=== PATIENT | female | born 1945 | race Caucasian/White ===

== ENCOUNTER 2019-11-10 11:09 | Observation (INO) | payer MEDICARE ==
[~2019-11-10] VITALS: Ht 172.7 cm; Wt 81.6 kg
[2019-11-10] MEDS ORDERED: ASPIRIN 81 MG CHEW TAB PO ONE ×2 (11:30→12:15)
--- NOTE | 2019-11-10 11:38 | Emergency Department Note ---
History of Present Illnes History of Present Illness Chief Complaint: Hypertension History of Present Illness This is a 74 year old female . c/o cp elevated bp on set 230 am PATIENT IN FROM HOME WITH COMPLAINT SOF FEELING CHEST PRESSURE AND PALPITATIONS SINCE 0230. PATIENT APPEARS IN NO DISTRESS, RESP EVEN AND NONLABORED Historian: Patient Arrival Mode: Car Onset (how long ago): day(s) (1) Radiation: Reports non-radiation Severity: mild Onset quality: sudden Duration (how long): day(s) (1) Timing of current episode: constant Progression: unchanged Context: Denies recent illness, Denies recent surgery, Denies recent immobilization, Denies recent travel, Denies trauma/injury, Denies new medications, Denies hx of DVT/PE, Denies non-compliance w/ medications, Denies other Relieving factors: none Exacerbating factors: none Associated symptoms: Denies denies other symptoms, Denies confusion, Denies chest pain, Denies cough, Denies diaphoresis, Denies fever/chills, Denies headaches, Denies loss of appetite, Denies malaise, Denies nausea/vomiting, Denies rash, Denies seizure, Denies shortness of breath, Denies syncope, Denies weakness, Denies other Treatments prior to arrival: none Past Medical/Family History Physician Review I have reviewed the patient's past medical and family history. Any updates have been documented here. Past Medical History Recent Fever: No Clinical Suspicion of Infectio: No New/Unexplained Change in Ment: No Past Medical History: Hypertension, Diabetes, CO, Hyperlipedemia Past Surgical History: Appendectomy, CABG, Other Surgery: EYE SURGERY Social History Smoking Cessation: Never Smoker Alcohol Use: None Any Illegal Drug Use: No TB Exposure/Symptoms: No Family History Family history of heart diseas: No Other Any Pre-Existing Lines (PICC,: No Review of Systems Review of Systems Constitutional: Reports no symptoms EENTM: Reports no symptoms Cardiovascular: Reports chest pain Respiratory: Reports no symptoms Gastrointestinal: Reports no symptoms Genitourinary: Reports no symptoms Musculoskeletal: Reports no symptoms Integumentary: Reports no symptoms Neurological: Reports no symptoms Psychological: Reports no symptoms Endocrine: Reports no symptoms Hematological/Lymphatic: Reports no symptoms Physical Exam Related Data Allergies: Coded Allergies: Sulfa (Sulfonamide Antibiotics) (Verified Allergy, Severe, RASHES, 11/10/19) Triage Vital Signs Vital Signs Date Time Temp Pulse Resp B/P (MAP) Pulse Ox O2 Delivery O2 Flow Rate FiO2 11/10/19 11:25 99.5 76 18 189/101 97 Room Air Vital signs reviewed: Yes Physical Exam CONSTITUTIONAL Constitutional: Present well-developed, Present well-nourished HENT HENT: Present normocephalic, Present atraumatic, Present oropharynx clear/moist, Present nose normal HENT L/R: Present left ext ear normal, Present right ext ear normal EYES Eyes: Reports PERRL, Reports conjunctivae normal NECK Neck: Present ROM normal PULMONARY Pulmonary: Present effort normal, Present breath sounds normal CARDIOVASCULAR Cardiovascular: Present regular rhythm, Present heart sounds normal, Present capillary refill normal, Present normal rate, Present other (c/o left side chest / axilla pain minimal at this time ) GASTROINTESTINAL Abdominal: Present soft, Present nontender, Present bowel sounds normal GENITOURINARY Genitourinary: Present exam deferred SKIN Skin: Present warm, Present dry MUSCULOSKELETAL Musculoskeletal: Present ROM normal, Present other (no holmans no cords ) NEUROLOGICAL Neurological: Present alert, Present oriented x 3, Present no gross motor or sensory deficits PSYCHOLOGICAL Psychological: Present mood/affect normal, Present judgement normal Results Laboratory Laboratory Laboratory Tests Test 11/10/19 11:34 White Blood Count 10.00 x10e3/uL (4.8-10.8) Red Blood Count 5.45 x10e6/uL (3.6-5.1) Hemoglobin 16.0 g/dL (12.0-16.0) Hematocrit 47.3 % (34.2-44.1) Mean Corpuscular Volume 86.8 fL (81-99) Mean Corpuscular Hemoglobin 29.4 pg (28-32) Mean Corpuscular Hemoglobin Concent 33.8 g/dL (31-35) Red Cell Distribution Width 12.4 % (11.7-14.4) Platelet Count 209 x10e3/uL (140-360) Neutrophils (%) (Auto) 71.6 % (38.7-80.0) Lymphocytes (%) (Auto) 21.0 % (18.0-39.1) Monocytes (%) (Auto) 4.5 % (4.4-11.3) Eosinophils (%) (Auto) 1.9 % (0.0-6.0) Basophils (%) (Auto) 0.3 % (0.0-1.0) Neutrophils # (Auto) 7.2 (2.1-6.9) Lymphocytes # (Auto) 2.1 (1.0-3.2) Monocytes # (Auto) 0.5 (0.2-0.8) Eosinophils # (Auto) 0.2 (0.0-0.4) Basophils # (Auto) 0.0 (0.0-0.1) Absolute Immature Granulocyte (auto 0.07 x10e3/uL (0-0.1) Prothrombin Time 11.9 seconds (11.9-14.5) Prothromb Time International Ratio 0.83 Activated Partial Thromboplast Time 24.9 seconds (23.8-35.5) Urine Color Yellow (YELLOW) Urine Clarity Clear (CLEAR) Urine pH 5.5 (5 - 7) Urine Specific Johnson 1.025 (1.010-1.025) Urine Protein Negative (NEGATIVE) Urine Glucose (UA) Negative (NEGATIVE) Urine Ketones Negative (NEGATIVE) Urine Blood Trace (NEGATIVE) Urine Nitrite Negative (NEGATIVE) Urine Bilirubin Negative (NEGATIVE) Urine Urobilinogen 0.2 mg/dL (0.2 - 1) Urine Leukocyte Esterase Negative (NEGATIVE) Sodium Level 141 mmol/L (136-145) Potassium Level 4.1 mmol/L (3.5-5.1) Chloride Level 106 mmol/L (98-107) Carbon Dioxide Level 25 mmol/L (22-29) Anion Gap 14.1 mmol/L (8-16) Blood Urea Nitrogen 13 mg/dL (7-26) Creatinine 0.84 mg/dL (0.57-1.11) Estimat Glomerular Filtration Rate > 60 ML/MIN (60-) BUN/Creatinine Ratio 15 (6-25) Glucose Level 176 mg/dL (74-118) Calcium Level 9.2 mg/dL (8.4-10.2) Total Bilirubin 0.6 mg/dL (0.2-1.2) Aspartate Amino Transf (AST/SGOT) 18 IU/L (5-34) Alanine Aminotransferase (ALT/SGPT) 22 IU/L (0-55) Alkaline Phosphatase 58 IU/L (40-150) Creatine Kinase 50 IU/L (29-168) Creatine Kinase MB 2.50 ng/mL (0-5.0) Troponin I < 0.001 ng/mL (0-0.300) Total Protein 7.2 g/dL (6.5-8.1) Albumin 4.3 g/dL (3.5-5.0) Globulin 2.9 g/dL (2.3-3.5) Albumin/Globulin Ratio 1.5 (0.8-2.0) Laboratory Tests Test 11/10/19 11:34 White Blood Count 10.00 x10e3/uL (4.8-10.8) Red Blood Count 5.45 x10e6/uL (3.6-5.1) Hemoglobin 16.0 g/dL (12.0-16.0) Hematocrit 47.3 % (34.2-44.1) Mean Corpuscular Volume 86.8 fL (81-99) Mean Corpuscular Hemoglobin 29.4 pg (28-32) Mean Corpuscular Hemoglobin Concent 33.8 g/dL (31-35) Red Cell Distribution Width 12.4 % (11.7-14.4) Platelet Count 209 x10e3/uL (140-360) Neutrophils (%) (Auto) 71.6 % (38.7-80.0) Lymphocytes (%) (Auto) 21.0 % (18.0-39.1) Monocytes (%) (Auto) 4.5 % (4.4-11.3) Eosinophils (%) (Auto) 1.9 % (0.0-6.0) Basophils (%) (Auto) 0.3 % (0.0-1.0) Neutrophils # (Auto) 7.2 (2.1-6.9) Lymphocytes # (Auto) 2.1 (1.0-3.2) Monocytes # (Auto) 0.5 (0.2-0.8) Eosinophils # (Auto) 0.2 (0.0-0.4) Basophils # (Auto) 0.0 (0.0-0.1) Absolute Immature Granulocyte (auto 0.07 x10e3/uL (0-0.1) Prothrombin Time 11.9 seconds (11.9-14.5) Prothromb Time International Ratio 0.83 Activated Partial Thromboplast Time 24.9 seconds (23.8-35.5) Procedures 12 Lead ECG Interpretation ECG Interpretation : 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 Date: Nov 10, 2019 Time: 11:29 Prior ECG tracings: reviewed Rhythm: sinus rhythm Ectopy: frequent PVC's BPM: 78 QRS axis: normal ST segments normal: Yes T wave inversion: aVR, V1, V4, V5 Clinical Impression: abnormal ECG Assessment & Plan Medical Decision Making MDM c/o cp elevated bp on set 230 am - minimal cp reported at this time noted elevated bp 189/101 - ordered lab ekg cxr - medicated w/ asa metoprolol clonidine d/d mi acs pne htn Reassessment Reassessment discussed lab ekg cxr results plan of care and need for admit us duplex neg for dvt spoke Dr Reyes will admit Dr Reyes in eval pt status Assessment & Plan Final Impression: (1) Chest pain (2) Hypertension (3) Type 2 diabetes mellitus Depart Disposition: ADMITTED Last Vital Signs Date Time Temp Pulse Resp B/P (MAP) Pulse Ox O2 Delivery O2 Flow Rate FiO2 11/10/19 11:25 99.5 76 18 189/101 97 Room Air Medications in the ED Aspirin 81 mg PRN ONCE PO ; Start 11/10/19 at 11:30; Stop 11/10/19 at 11:31; Status VINCEV QUENTIN DENNY Nov 10, 2019 11:38
[2019-11-10] MEDS ORDERED: METOPROLOL TARTRATE 50 MG TAB PO ONE (12:00)
[2019-11-10] MEDS ORDERED: CLONIDINE HCL 0.1 MG TAB PO ONE (12:00)
[2019-11-10 12:05] LABS: BASOPHILS % 0.3 % (0.0-1.0); EOSINOPHILS # (AUTO) 0.2 (0.0-0.4); EOSINOPHILS % 1.9 % (0.0-6.0); HEMATOCRIT 47.3 % (34.2-44.1); LYMPHOCYTES # (AUTO) 2.1 (1.0-3.2); MEAN CORPUSCULAR HEMOGLOBIN 29.4 pg (28-32); MEAN CORPUSCULAR HGB CONC 33.8 g/dL (31-35); MEAN CORPUSCULAR VOLUME 86.8 fL (81-99); MONOCYTES # (AUTO) 0.5 (0.2-0.8); MONOCYTES % 4.5 % (4.4-11.3); NEUTROPHILS # (AUTO) 7.2 (2.1-6.9); NEUTROPHILS % 71.6 % (38.7-80.0); PLATELET COUNT 209 x10e3/uL (140-360); RED BLOOD COUNT 5.45 x10e6/uL (3.6-5.1); RED CELL DISTRIBUTION WIDTH 12.4 % (11.7-14.4)
[2019-11-10 12:09] LABS: INR 0.83; PARTIAL THROMBOPLASTIN TIME 24.9 seconds (23.8-35.5); PROTHROMBIN TIME 11.9 seconds (11.9-14.5)
[2019-11-10] MEDS ORDERED: ASPIRIN 81 MG CHEW TAB PO STA (12:09)
[2019-11-10] MEDS ORDERED: MORPHINE SULFATE 2 MG/ML SYR 1ML IV STA (12:09)
[2019-11-10] MEDS ORDERED: ONDANSETRON HCL INJ 2MG/ML 2ML 2 MG/ML VIAL IV STA (12:09)
[2019-11-10] MEDS ORDERED: DEXTROSE 50% SYRINGE 50 ML IV PRN (12:15)
[2019-11-10] MEDS ORDERED: METOPROLOL TARTRATE 25 MG TAB PO SCH ×2 (12:15→21:00)
[2019-11-10] MEDS ORDERED: FAMOTIDINE 20 MG/2 ML VIAL IV SCH (12:15)
[2019-11-10] MEDS ORDERED: ONDANSETRON HCL INJ 2MG/ML 2ML 2 MG/ML VIAL IV PRN (12:15)
[2019-11-10] MEDS ORDERED: MORPHINE SULFATE 2 MG/ML SYR 1ML IV PRN (12:15)
[2019-11-10 12:18] LABS: ALANINE AMINOTRANSFERASE 22 IU/L (0-55); ALBUMIN 4.3 g/dL (3.5-5.0); ALBUMIN/GLOBULIN RATIO 1.5 (0.8-2.0); ALKALINE PHOSPHATASE 58 IU/L (40-150); ANION GAP 14.1 mmol/L (8-16); BLOOD UREA NITROGEN 13 mg/dL (7-26); BUN/CREATININE RATIO 15 (6-25); CALCIUM 9.2 mg/dL (8.4-10.2); CARBON DIOXIDE 25 mmol/L (22-29); CHLORIDE 106 mmol/L (98-107); CREATINE KINASE 50 IU/L (29-168); CREATININE, SERUM 0.84 mg/dL (0.57-1.11); EST GLOMERULAR FILTRATION RATE > 60 ML/MIN (60-); GLUCOSE 176 mg/dL (74-118); POTASSIUM 4.1 mmol/L (3.5-5.1); SODIUM 141 mmol/L (136-145)
[2019-11-10 12:26] LABS: CLARITY,URINE CLEAR (CLEAR); COLOR,URINE YELLOW (YELLOW); LEUKOCYTE ESTERASE ,URINE NEGATIVE (NEGATIVE)
[2019-11-10 12:27] LABS: BILIRUBIN,URINE NEGATIVE (NEGATIVE); KETONES,URINE NEGATIVE (NEGATIVE); NITRITE,URINE NEGATIVE (NEGATIVE); PROTEIN,URINE DIPSTICK NEGATIVE (NEGATIVE); URINE UROBILINOGEN 0.2 mg/dL (0.2 - 1)
[2019-11-10 12:31] LABS: BACTERIA,URINE RARE /HPF; EPITHELIAL CELLS,URINE FEW /LPF
--- NOTE | 2019-11-10 12:51 | Diagnostic Imaging Report ---
EXAMINATION: CHEST SINGLE (PORTABLE) INDICATION: ^ERMD ORDER ^[id number] ^1212 ^Y COMPARISON: None FINDINGS: AP view TUBES and LINES: None. LUNGS: Lungs are well inflated. Lungs are clear. There is no evidence of pneumonia or pulmonary edema. PLEURA: No pleural effusion or pneumothorax. HEART AND MEDIASTINUM: The cardiomediastinal silhouette is unremarkable.. BONES AND SOFT TISSUES: Status post median sternotomy. Soft tissues are unremarkable. UPPER ABDOMEN: No free air under the diaphragm. IMPRESSION: No acute thoracic abnormality. Signed by: Dr. Deana Burciaga M.D. on 11/10/2019 12:48 PM
--- NOTE | 2019-11-10 14:49 | Diagnostic Imaging Report ---
EXAM: CT Chest WITH contrast 11/10/2019 1:50 PM INDICATION: ^RO PE ^[id number] ^1350 ^Y COMPARISON: Chest radiograph 11/10/2019 TECHNIQUE: Spiral CT images of the chest were performed from the lung apices through the level of the adrenal glands after the IV contrast administration. Thin section reconstructions were obtained with special concentration on the pulmonary arteries. IV CONTRAST: 100 mL of Isovue-370 ORAL CONTRAST: None COMPLICATIONS: None RADIATION DOSE: Total DLP: 525.1 mGy*cm Estimated effective dose: (DLP x 0.015 x size factor) mSv CTDIvol has been reviewed. It is below the limits set by the Radiation Protocol Committee (RPC). FINDINGS: LINES/ TUBES: None. PULMONARY ARTERIES: No filling defects are identified in the main, right or left pulmonary arteries to their segmental and subsegmental levels, to suggest pulmonary embolism. The main pulmonary artery is mildly dilated, measuring 3.2 cm in diameter. LUNGS AND AIRWAYS: The lungs are unremarkable. Airways are normal. PLEURA: The pleural spaces are clear. HEART AND MEDIASTINUM: The thyroid gland is normal. No mediastinal, hilar or axillary lymphadenopathy. Biatrial enlargement. Mild calcifications of the mitral annulus. There is no pericardial effusion. The thoracic aorta is mildly ectatic in the ascending segment, measuring 3.9 cm. Mild atherosclerotic calcifications throughout the thoracic aorta. Mild coronary artery calcifications. 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 Moderate hiatal hernia. UPPER ABDOMEN: Circumferential atherosclerotic changes of the distal SMA in the anterior abdomen on series 2, image 128 results in 50% stenosis. BONES: Median sternotomy. SOFT TISSUES: Unremarkable. IMPRESSION: No pulmonary embolism. Biatrial enlargement with mild enlargement of the pulmonary arteries are suggestive of pulmonary hypertension. No pulmonary edema. No consolidations to suggest infection. Moderate hiatal hernia. Signed by: Dr. Deana Burciaga M.D. on 11/10/2019 2:46 PM
[2019-11-10] MEDS ORDERED: METOPROLOL TARTRATE 50 MG TAB ONE (15:50)
[2019-11-10] MEDS ORDERED: ASPIRIN 81 MG ENTERIC COATED PO ONE (15:50)
[2019-11-10] MEDS ORDERED: CLONIDINE HCL 0.1 MG TAB ONE (15:50)
[2019-11-10] MEDS ORDERED: FAMOTIDINE 20 MG/2 ML VIAL IV ONE (15:51)
[2019-11-10] MEDS ORDERED: ENOXAPARIN INJ 80 MG/0.8 ML SYR SC ONE (16:00)
[2019-11-10] MEDS: INSULIN REGULAR, HUMAN 100 UNIT/1 ML 3ML VIAL SQ SCH ×2 (19:59→22:16)
[2019-11-10] MEDS: CARVEDILOL 3.125 MG TAB PO SCH (20:25)
[2019-11-10 21:30] LABS: CREATINE KINASE MB 1.9 ng/mL (0-5.0)
[2019-11-10] MEDS: FAMOTIDINE 20 MG/2 ML VIAL IV SCH (22:15)
--- NOTE | 2019-11-10 23:28 | NUR ---
Cardiology Consult Dictation# [id number]
--- NOTE | 2019-11-11 02:17 | Consultation ---
DATE OF CONSULTATION: 11/10/2019 Cardiology Consultation REQUESTING PHYSICIAN: Dr. Zayas. REASON FOR CONSULTATION: Chest pain. HISTORY OF PRESENT ILLNESS: This is a 74-year-old woman with history of severe mitral regurgitation, status post mitral valve repair, history of moderate pulmonary hypertension, diabetes mellitus, hyperlipidemia, who presents with complaints of elevated blood pressure. The patient reports that she woke up this morning around 2:00 a.m. feeling funny. She notes her blood pressure was elevated as high as over 200 systolic. At the time of interview, the patient denied any symptoms. However, she reported to the ER that she had chest pressure and palpitations this morning. She denied any edema, orthopnea, or PND. Cardiology is consulted for further evaluation. REVIEW OF SYSTEMS: Negative except as per HPI. PAST MEDICAL HISTORY: 1. Severe mitral regurgitation, status post mitral valve repair. 2. Moderate pulmonary hypertension. 3. Hypertension. 4. Hyperlipidemia. 5. Diabetes mellitus. PAST SURGICAL HISTORY: 1. section x2. 2. Hand surgery. 3. Appendectomy. 4. Mitral valve repair. ALLERGIES: PLEASE SEE EMR. MEDICATIONS: Please see medication list. SOCIAL HISTORY: No tobacco, alcohol, or illicit drugs. FAMILY HISTORY: Pertinent for mother with aortic valve replacement. PHYSICAL EXAMINATION: VITAL SIGNS: Temperature 99.5 degrees, pulse 60, respiratory rate 15, blood pressure 130/61, oxygen saturations 99%. GENERAL: An elderly woman, in no acute distress. Well developed, well nourished. HEENT: Normocephalic and atraumatic. Pupils are equal. No scleral icterus. NECK: Supple. No thyroid or cervical lymphadenopathy. No carotid bruits. LUNGS: Clear to auscultation bilaterally. No wheezes or crackles. CARDIOVASCULAR: Normal rate, regular rhythm. No murmur. Normal S1, S2. ABDOMEN: Soft, nontender. EXTREMITIES: No edema. NEUROLOGIC: Nonfocal exam. LABORATORY DATA: WBC 10, hemoglobin 16, hematocrit 47.3, platelets 209. Sodium 131, potassium 4.1, chloride 106, CO2 of 25. BUN 13, creatinine 0.84, troponin 0.009. BNP 204. EKG, sinus rhythm with frequent PVCs, possible left atrial enlargement, no acute T-wave abnormality. IMPRESSION: 1. Hypertension, poorly controlled. 2. Chest pain. 3. Palpitations. 4. Pulmonary hypertension. 5. Severe mitral regurgitation, status post mitral valve repair. 6. Hypertension. 7. Hyperlipidemia. 8. Diabetes mellitus. RECOMMENDATIONS: Resume home carvedilol and losartan. Monitor blood pressure response. Titrate losartan as necessary for blood pressure control as the patient is bradycardic. Trend troponin. The patient had cardiac catheterization performed 3 years ago prior to her mitral valve repair. She had mild coronary artery disease. Her last echocardiogram was in 2019, with preserved LVEF. If she ruled out for myocardial infarction and blood pressure is controlled, she may be discharged home to follow up in the clinic with Dr. Hall. Thank you for this consult. We will continue to follow. Gertrudis Price MD ABS/MODL /[id number] MTDD
[2019-11-11] MEDS ORDERED: ENOXAPARIN INJ 80 MG/0.8 ML SYR SC SCH (06:00)
--- NOTE | 2019-11-11 07:12 | NUR ---
CALLED LAB FOR 3RD SET ENZYME DRAW DUE AT 4 AM.
[2019-11-11] MEDS: INSULIN REGULAR, HUMAN 100 UNIT/1 ML 3ML VIAL SQ SCH (07:13)
[2019-11-11] MEDS: FAMOTIDINE 20 MG/2 ML VIAL IV SCH (07:20)
[2019-11-11] MEDS: CARVEDILOL 3.125 MG TAB PO SCH (07:20)
[2019-11-11 07:59] LABS: BASOPHILS # (AUTO) 0.1 (0.0-0.1); BASOPHILS % 0.6 % (0.0-1.0); EOSINOPHILS # (AUTO) 0.2 (0.0-0.4); EOSINOPHILS % 2.5 % (0.0-6.0); HEMATOCRIT 42.7 % (34.2-44.1); HEMOGLOBIN 14.3 g/dL (12.0-16.0); LYMPHOCYTES # (AUTO) 3.6 (1.0-3.2); LYMPHOCYTES % 42.7 % (18.0-39.1); MEAN CORPUSCULAR HEMOGLOBIN 29.2 pg (28-32); MEAN CORPUSCULAR HGB CONC 33.5 g/dL (31-35); MEAN CORPUSCULAR VOLUME 87.3 fL (81-99); MONOCYTES # (AUTO) 0.5 (0.2-0.8); MONOCYTES % 6.1 % (4.4-11.3); NEUTROPHILS % 47.7 % (38.7-80.0); PLATELET COUNT 186 x10e3/uL (140-360); RED BLOOD COUNT 4.89 x10e6/uL (3.6-5.1); RED CELL DISTRIBUTION WIDTH 12.6 % (11.7-14.4)
[2019-11-11 08:26] LABS: CREATINE KINASE MB 1.4 ng/mL (0-5.0)
[2019-11-11 08:42] LABS: ALANINE AMINOTRANSFERASE 16 IU/L (0-55); ALBUMIN 3.7 g/dL (3.5-5.0); ALBUMIN/GLOBULIN RATIO 1.5 (0.8-2.0); ALKALINE PHOSPHATASE 48 IU/L (40-150); ANION GAP 13.8 mmol/L (8-16); BLOOD UREA NITROGEN 14 mg/dL (7-26); BUN/CREATININE RATIO 18 (6-25); CARBON DIOXIDE 24 mmol/L (22-29); CHLORIDE 106 mmol/L (98-107); CHOLESTEROL 131 MD/DL (0-199); EST GLOMERULAR FILTRATION RATE > 60 ML/MIN (60-); GLUCOSE 141 mg/dL (74-118); HDL CHOLESTEROL 22 MG/DL (40-60); LDL CHOLESTEROL 53 MG/DL (60-130); MAGNESIUM 1.8 MG/DL (1.3-2.1); POTASSIUM 3.8 mmol/L (3.5-5.1); SODIUM 140 mmol/L (136-145); TRIGLYCERIDES 281 MG/DL (0-149)
[2019-11-11] MEDS ORDERED: ASPIRIN 81 MG ENTERIC COATED PO SCH (09:00)
[2019-11-11] MEDS ORDERED: LOSARTAN POTASSIUM 25 MG TAB PO SCH (09:00)
== END 2019-11-11 09:41 | disposition home or self-care (01) ==
LOC: ER 13:35 → ERHOLD 14:49
PROVIDERS: ADMIT Internal Medicine; ATTEND Internal Medicine
DX: R07.89 Other chest pain (principal); I10 Essential (primary) hypertension; E11.9 Type 2 diabetes mellitus without complications; I27.20 Pulmonary hypertension, unspecified; Z11.59 Encounter for screening for other viral diseases
CPT/HCPCS: 36415 ×2; 71045; 71260; 80053 ×2; 80061; 81001; 82550 ×2; 82553 ×2; 82948; 83735 ×2; 83880; 84484 ×2; 85025 ×2; 85610; 85730; 87086; 87635; 93005; 93970; 99285; G0378 ×2; J1650 ×2